=== PATIENT | female | born 1990 | race Caucasian/White ===

== ENCOUNTER 2018-08-01 10:52 | Emergency (ER) | payer BC, MEDICAID ==
[2018-08-01 12:44] VITALS: BP 121/65
--- NOTE | 2018-08-01 13:05 | UC ---
Throat Pain/Nasal Dave HPI - HPI Summary HPI Summary: 27 year old female 33 weeks presents with 2 day history of sore throat. Associated with some mild bialeral ear fullness and occastion non- productive cough. Denies fever, chills, nasal congestion, dysphagia, chest pain , shortness of breath, abdominal pain, nausea, vomiting, diarrhea, cramping, vaginal discharge, or abnormal bleeding. - History of Current Complaint Chief Complaint: UCGeneralIllness Stated Complaint: SORE THROAT Time Seen by Provider: 08/01/18 12:46 Hx Obtained From: Patient Hx Last Menstrual Period: 05/03/15 Pain Intensity: 4 - Allergies/Home Medications Allergies/Adverse Reactions: Allergies Allergy/AdvReac Type Severity Reaction Status Date / Time hydrocodone [From Vicodin] AdvReac Vomiting Verified 08/01/18 12:40 Penicillins AdvReac Vomiting Verified 08/01/18 12:40 prednisone AdvReac Vomiting Verified 08/01/18 12:40 Home Medications: Home Medications Pantoprazole TAB * [Protonix TAB (NF)] 40 mg PO BID 08/01/18 [History Confirmed 08/01/18] PMH/Surg Hx/FS Hx/Imm Hx GI/ History: Gastroesophageal Reflux - Surgical History Surgical History: None - Family History Known Family History: Positive: Non-Contributory - Social History Occupation: Employed Full-time Lives: Alone Alcohol Use: None Substance Use Type: None Smoking Status (MU): Never Smoked Tobacco Review of Systems All Other Systems Reviewed And Are Negative: Yes Constitutional: Negative: Fever, Chills Skin: Negative: Rash Eyes: Negative: Drainage, Eye Redness ENT: Positive: Sore Throat. Negative: Ear Ache, Nasal Discharge, Sinus Congestion, Sinus Pain/Tenderness Respiratory: Positive: Cough. Negative: Shortness Of Breath Cardiovascular: Negative: Palpitations, Chest Pain Gastrointestinal: Negative: Abdominal Pain, Vomiting, Diarrhea, Nausea Genitourinary: Negative: Dysuria, Hematuria, Frequency, Vaginal/Penile Discharge , Abnormal Bleeding Musculoskeletal: Positive: Negative Neurological: Positive: Negative Is Patient Immunocompromised?: No Physical Exam - Summary Physical Exam Summary: GENERAL APPEARANCE: Well developed, well nourished, alert and cooperative, young adult female who appears to be in no acute distress. EYES: Conjunctiva clear. No drainage. Vision is grossly intact. EARS: External auditory canals and tympanic membranes clear, hearing grossly intact. NOSE: No nasal congestion or discharge noted. THROAT: Mild pharyngeal erythema. Tonsils 2+ without exudate or lesions. Oral cavity normal. Teeth and gingiva in good general condition. NECK: Neck supple, non-tender without lymphadenopathy. CARDIAC: Normal S1 and S2. No S3, S4 or murmurs. Rhythm is regular. There is no peripheral edema, cyanosis or pallor. Extremities are warm and well perfused. Capillary refill is less than 2 seconds. LUNGS: Clear to auscultation without rales, rhonchi, wheezing or diminished breath sounds. ABDOMEN: Positive bowel sounds. Soft, nondistended, nontender. No guarding or rebound. No masses or hepatosplenomegally. MUSKULOSKELETAL: ROM intact to all extremities. No joint erythema or tenderness. Normal muscular development. Normal gait. SKIN: Skin normal color, texture and turgor with no lesions or eruptions. Triage Information Reviewed: Yes Vital Signs: Initial Vital Signs Temp 97.3 F 08/01/18 12:39 Pulse 98 08/01/18 12:39 Resp 16 08/01/18 12:39 BP 121/65 08/01/18 12:39 Pulse Ox 99 08/01/18 12:39 Vital Signs Reviewed: Yes Diagnostics - Laboratory Diagnostic Studies Completed/Ordered: Rapid strep negative Throat Pain/Nasal Course/Dx - Course Course Of Treatment: 27 year old female 33 weeks presents with 2 day history of sore throat. Associated with some mild bialeral ear fullness and occastion non-productive cough. Denies fever, chills, nasal congestion, dysphagia, chest pain, shortness of breath, abdominal pain, nausea, vomiting, diarrhea, cramping, vaginal discharge, or abnormal bleeding. Afebrile. VSS. Exam reveals a young adult female in no acute distress. Mild pharyngeal erythema. Tonsils 2+ without exudate. No cervical lymphadenopathy. Remainder of exam unremarkable. Rapid strep negative. Recommend symptomatic treatment for viral pharyngitis. Warning symptoms reviewed with patient. Verbalizes understanding and agrees with POC. - Differential Dx/Diagnosis Differential Diagnosis/HQI/PQRI: Influenza, Laryngitis, Mononucleosis, Pharyngitis, Sinusitis, Tonsillitis, URI Provider Diagnosis: Viral pharyngitis Discharge - Sign-Out/Discharge Documenting (check all that apply): Patient Departure All imaging exams completed and their final reports reviewed: No Studies - Discharge Plan Condition: Stable Disposition: HOME Patient Education Materials: Pharyngitis (ED) Referrals: López Juarez MD [Primary Care Provider] - 7 Days (If symptoms persist.) Additional Instructions: Your rapid strep test in the clinic today was negative. Your symptoms are likely from a viral infection. Viral infections do not respond to antibiotics and are limited to the treatment of symptoms. Viral infections typically run their course in 7-10 days. Drink plenty of fluids to avoid dehydration especially if you are running any fever. Use salt water gargles several times a day. Take over the counter acetaminophen (Tylenol) according to directions as needed for pain or fever. You may also use Chloraseptic spray or Cepacol lonzenges according to directions which contain a numbing medication and can provide some temporary relief from your sore throat. Return here or follow up with your primary care provider in 7 days if symptoms persist. Seek immediate medical attention in the emergency room if you have fever greater than 100.5 F despite taking acetaminophen, are unable to swallow or develop drooling, are unable to open your mouth fully, are unable to eat or drink, have pain that is not relieved with over the counter pain medication, or have any difficulty breathing. - Billing Disposition and Condition Condition: STABLE Disposition: Home - Attestation Statements Provider Attestation: I was available for consult. This patient was seen by the JIHAN. The patient was not presented to , seen by or examined by - Staci Wilson MD
== END 2018-08-01 13:14 | disposition home or self-care (01) ==
LOC: UCCORT 10:52
DX: J02.8 Acute pharyngitis due to other specified organisms (principal); K21.9 Gastro-esophageal reflux disease without esophagitis; O26.893 Other specified pregnancy related conditions, third trimester; Z3A.33 33 weeks gestation of pregnancy; Z88.5 Allergy status to narcotic agent; Z88.0 Allergy status to penicillin; Z88.6 Allergy status to analgesic agent
CPT/HCPCS: 87651; 99211; G0463